=== PATIENT | male | born 1955 | race Two or more races ===

== ENCOUNTER 2018-01-11 19:46 | Inpatient (IN) | payer OTHER ==
[~2018-01-11] VITALS: Ht 170.2 cm; Wt 63.5 kg
[2018-01-11] MEDS ORDERED: TRILIPIX45 MG (20:04)
[2018-01-11] MEDS ORDERED: METOPROLOL ER-1 EACH (20:04)
== END 2018-01-15 17:47 | disposition home or self-care (01) | DRG 372 ==
LOC: ER 19:46 → SURH 01-12 11:39 → SEC-K 01-12 11:39 → SURH 01-12 20:16
PROC: BW21ZZZ Computerized Tomography (CT Scan) of Abdomen and Pelvis (ICD-10-PCS; principal; 2018-01-12)
PROC: BW40ZZZ Ultrasonography of Abdomen (ICD-10-PCS; 2018-01-12)
DX: A02.0 Salmonella enteritis (principal); K52.1 Toxic gastroenteritis and colitis; K76.0 Fatty (change of) liver, not elsewhere classified; E78.49 Other hyperlipidemia; R00.0 Tachycardia, unspecified; J45.40 Moderate persistent asthma, uncomplicated; Z88.0 Allergy status to penicillin

== ENCOUNTER 2018-11-28 20:08 | Emergency (ER) | payer OTHER ==
[~2018-11-28] VITALS: Ht 170.2 cm; Wt 63.5 kg
[~2018-11-28 20:08] MED LIST: METOPROLOL ER-1 EACH; TRILIPIX45 MG
[2018-11-29] MEDS ORDERED: ZITHROMAX500 MG PO (01:49)
[2018-11-29] MEDS ORDERED: TUSNEL LIQUID178 ML PO (01:49)
== END 2018-11-29 02:01 | disposition home or self-care (01) ==
LOC: ER 20:08
DX: J06.9 Acute upper respiratory infection, unspecified (principal)

== ENCOUNTER 2019-08-25 12:48 | Emergency (ER) | payer OTHER ==
[~2019-08-25] VITALS: Ht 170.2 cm; Wt 63.5 kg
[~2019-08-25 12:48] MED LIST changes: +TUSNEL LIQUID178 ML PO; +ZITHROMAX500 MG PO
[2019-08-25] MEDS ORDERED: TOPROL XL25 M1 PO (13:07)
[2019-08-25] MEDS ORDERED: BREO ELLIPTA I1 EACH IH (13:08)
[2019-08-25] MEDS ORDERED: PROAIR HFA8.5 GM IH (13:08)
[2019-08-25] MEDS ORDERED: FENOFIBRIC ACI135 MG PO (13:08)
[2019-08-25] MEDS ORDERED: MEDROLPACK PO (15:46)
[2019-08-25] MEDS ORDERED: CELEBREX200MG PO (15:46)
[2019-08-25] MEDS ORDERED: SKELAXIN800 MG PO (15:46)
== END 2019-08-25 15:54 | disposition home or self-care (01) ==
LOC: ER 12:48
DX: M54.5 Low back pain (principal)